=== PATIENT | female | born 1970 | race Caucasian/White ===

== ENCOUNTER → 2023-12-21 | Outpatient (REF) | payer BC | LOC: MRI 10:13 | PROVIDERS: ATTEND Physical Medicine & Rehabilitation Pain Medicine | DX: M75.102 Unspecified rotator cuff tear or rupture of left shoulder, not specified as traumatic (principal) ==

== ENCOUNTER → 2024-10-09 | Outpatient (REF) | payer BC ==
[2024-10-09 14:58] LABS: BASOPHILS % 0.5 % (0.0-1.0); EOSINOPHILS # (AUTO) 0.1 (0.0-0.4); EOSINOPHILS % 1.4 % (0.0-6.0); HEMATOCRIT 39.9 % (34.2-44.1); HEMOGLOBIN 12.7 g/dL (12.0-16.0); LYMPHOCYTES # (AUTO) 1.8 (1.0-3.2); LYMPHOCYTES % 28.8 % (18.0-39.1); MEAN CORPUSCULAR HEMOGLOBIN 29.2 pg (28-32); MEAN CORPUSCULAR HGB CONC 31.8 g/dL (31-35); MEAN CORPUSCULAR VOLUME 91.7 fL (81-99); MONOCYTES # (AUTO) 0.4 (0.2-0.8); MONOCYTES % 6.2 % (4.4-11.3); NEUTROPHILS % 62.8 % (38.7-80.0); PLATELET COUNT 443 x10e3/uL (140-360); RED BLOOD COUNT 4.35 x10e6/uL (3.6-5.1); RED CELL DISTRIBUTION WIDTH 13.7 % (11.7-14.4); WHITE BLOOD COUNT 6.29 x10e3/uL (4.8-10.8)
[2024-10-09 15:25] LABS: ALBUMIN 4.2 g/dL (3.5-5.0); ALBUMIN/GLOBULIN RATIO 1.1 (0.8-2.0); ANION GAP 15.9 mmol/L (8-16); BILIRUBIN,TOTAL 0.4 mg/dL (0.2-1.2); CALCIUM 9.7 mg/dL (8.4-10.2); CHOL/HDL RATIO 4.9 (3.0-3.6); CREATININE, SERUM 0.7 mg/dL (0.57-1.11); MAGNESIUM 1.9 MG/DL (1.3-2.1); POTASSIUM 3.9 mmol/L (3.5-5.1)
[2024-10-09 15:48] LABS: FERRITIN 25.9 ng/mL (4.63-204.00); THYROID STIMULATING HORMONE 0.674 uIU/mL (0.350-4.940)
[2024-10-10 07:20] LABS: ESTRADIOL TOTAL 48.2 pg/mL (.)
== END ==
LOC: LAB 15:00
PROVIDERS: ATTEND Nurse Practitioner Adult Health
DX: Z00.00 Encounter for general adult medical examination without abnormal findings (principal); Z13.220 Encounter for screening for lipoid disorders; N95.1 Menopausal and female climacteric states; R53.83 Other fatigue; Z98.84 Bariatric surgery status
CPT/HCPCS: 36415; 80053; 80061; 82607; 82728; 83001; 83540; 83735; 84443; 84466; 85025

== ENCOUNTER 2024-10-25 12:56 | Outpatient (RCR) | payer BC | END 2024-10-26 | LOC: PT 12:56 | PROVIDERS: ATTEND Physician Assistant | DX: M25.512 Pain in left shoulder (principal) ==

== ENCOUNTER 2024-11-23 13:00 | Outpatient (RCR) | payer BC | END 2024-11-26 | LOC: PT 13:00 | PROVIDERS: ATTEND Physician Assistant | DX: M25.512 Pain in left shoulder (principal); G89.29 Other chronic pain; S46.002A Unspecified injury of muscle(s) and tendon(s) of the rotator cuff of left shoulder, initial encounter | CPT/HCPCS: 97110 ×8; 97140 ×6; G0283 ==

== ENCOUNTER 2024-12-17 14:00 | Outpatient (RCR) | payer BC | END 2024-12-26 | LOC: PT 14:00 | PROVIDERS: ATTEND Physician Assistant | DX: M25.512 Pain in left shoulder (principal); M75.102 Unspecified rotator cuff tear or rupture of left shoulder, not specified as traumatic; M19.012 Primary osteoarthritis, left shoulder ==

== ENCOUNTER 2025-01-29 06:05 | Outpatient (RCR) | payer BC | END 2025-02-25 | LOC: PT 06:05 | PROVIDERS: ATTEND Physician Assistant | DX: S46.092D Other injury of muscle(s) and tendon(s) of the rotator cuff of left shoulder, subsequent encounter (principal); Z47.89 Encounter for other orthopedic aftercare ==